=== PATIENT | male | born 1940 | race Caucasian/White ===

== ENCOUNTER 2021-03-18 14:43 | Emergency (ER) | payer MEDICARE ==
[2021-03-18] MEDS ORDERED: SODIUM CHLORIDE 0.9% 1,000 ML IV STA ×2 (15:25)
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
[2021-03-18 16:16] LABS: Basophils # (A) 0.1 k/uL (0-0.2); Basophils % (A) 1 %; Eosinophils # (A) 0.2 k/uL (0-0.7); Eosinophils % (A) 2 %; HCT 41.3 % (39.0-53.0); HGB 14.6 gm/dL (13.0-17.5); Lymphocytes # (A) 1.3 k/uL (1.0-4.8); Lymphocytes % (A) 18 %; MCH 33.1 pg (25.0-35.0); MCHC 35.3 g/dL (31.0-37.0); MCV 93.6 fL (80.0-100.0); Monocytes # (A) 0.4 k/uL (0-1.0); Monocytes % (A) 6 %; Neutrophils % (A) 71 %; Platelet Count 221 k/uL (150-450); RBC 4.41 m/uL (4.30-5.90); RDW 12.5 % (11.5-15.5)
[2021-03-18 16:20] LABS: Albumin 4.5 g/dL (3.5-5.0); Calcium 9.4 mg/dL (8.4-10.2); Potassium 4.5 mmol/L (3.5-5.1); Total Bilirubin 0.8 mg/dL (0.2-1.3); Total Protein 6.9 g/dL (6.3-8.2)
[2021-03-18 18:03] LABS: Appearance,Urine Clear (Clear); Bilirubin,Urine Negative (Negative); Blood,Urine Negative (Negative); Color,Urine Yellow; Glucose,Urine (UA) Negative (Negative); Ketones,Urine Negative (Negative); Leukocyte Esterase,Urine Negative (Negative); Nitrite,Urine Negative (Negative); PH, Urine 5.5 (5.0-8.0); Protein,Urine Negative (Negative); Specific Gravity,Urine 1.017 (1.001-1.035); Urobilinogen,Urine <2.0 mg/dL (<2.0)
--- NOTE | 2021-03-18 18:20 | XR ---
EXAMINATION TYPE: XR chest 2V DATE OF EXAM: 03/18/2021 COMPARISON: NONE HISTORY: Fever and weakness. TECHNIQUE: Frontal and lateral views of the chest are obtained. FINDINGS: There are mild to moderate bibasilar patchy opacities. No pleural effusion, or pneumothora x seen. The cardiac silhouette size is within normal limits. The osseous structures are intact. IMPRESSION: Bibasilar infiltrates in the appropriate clinical setting.
[2021-03-18 18:29] VITALS: TEMP 98.4
[2021-03-18 19:09] VITALS: BP 154/89; PULSE 71; RESP 18
== END 2021-03-18 19:10 | disposition home or self-care (01) ==
LOC: EC 14:43
DX: R53.1 Weakness (principal); I25.10 Atherosclerotic heart disease of native coronary artery without angina pectoris; I11.0 Hypertensive heart disease with heart failure; I50.9 Heart failure, unspecified; E11.9 Type 2 diabetes mellitus without complications
CPT/HCPCS: 36415; 71046; 80053; 81003; 83605; 84484; 85025; 85379; 87040; 87635; 93005; 99285

== ENCOUNTER 2022-10-01 04:50 | Emergency (ER) | payer MEDICARE ==
[2022-10-01 04:56] VITALS: TEMP 97.6
[2022-10-01 04:57] VITALS: BP 114/55; PULSE 77; RESP 16
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
[2022-10-01 05:24] LABS: Basophils % (A) 1 %; Eosinophils # (A) 0.2 k/uL (0-0.7); Eosinophils % (A) 2 %; HCT 35.1 % (39.0-53.0); HGB 13.1 gm/dL (13.0-17.5); Lymphocytes # (A) 1.4 k/uL (1.0-4.8); Lymphocytes % (A) 16 %; MCHC 37.2 g/dL (31.0-37.0); MCV 88.7 fL (80.0-100.0); Mean Platelet Volume 7.3; Monocytes # (A) 0.5 k/uL (0-1.0); Monocytes % (A) 5 %; Neutrophils # (A) 6.4 k/uL (1.3-7.7); Neutrophils % (A) 75 %; Platelet Count 225 k/uL (150-450); RBC 3.95 m/uL (4.30-5.90); RDW 13.1 % (11.5-15.5); WBC 8.6 k/uL (3.8-10.6)
[2022-10-01 05:37] LABS: Calcium 8.7 mg/dL (8.4-10.2); Potassium 4.3 mmol/L (3.5-5.1); Total Bilirubin 0.8 mg/dL (0.2-1.3); Total Protein 6.4 g/dL (6.3-8.2)
[2022-10-01 05:38] LABS: Partial Thromboplastin Time 24.3 sec (22.0-30.0); Prothrombin Time 10.3 sec (9.0-12.0)
--- NOTE | 2022-10-01 05:43 | XR ---
EXAMINATION TYPE: XR chest 2V DATE OF EXAM: 10/01/2022 COMPARISON: 03/18/2021 HISTORY: Weakness TECHNIQUE: 2 views FINDINGS: There is some linear density left lung base. Heart size is normal. There are no hilar ksenia s. Bony thorax is intact. There are chest leads. IMPRESSION: There is some mild atelectasis at the left lung base. No significant change compared to o ld exam. No heart failure.
== END 2022-10-01 06:25 | disposition home or self-care (01) ==
LOC: EC 04:50
DX: R07.89 Other chest pain (principal); I11.0 Hypertensive heart disease with heart failure; I50.9 Heart failure, unspecified; E11.9 Type 2 diabetes mellitus without complications; I25.10 Atherosclerotic heart disease of native coronary artery without angina pectoris; F41.9 Anxiety disorder, unspecified; Z79.4 Long term (current) use of insulin; Z79.899 Other long term (current) drug therapy
CPT/HCPCS: 36415; 71046; 80053; 83605; 83880; 84484; 85025; 85379; 85610; 85730; 93005; 99285

== ENCOUNTER 2022-11-22 07:31 | Emergency (ER) | payer MEDICARE ==
--- NOTE | 2022-11-22 08:23 | XR ---
EXAMINATION TYPE: XR chest 2V DATE OF EXAM: 11/22/2022 COMPARISON: 10/01/2022 INDICATION: Difficulty in breathing TECHNIQUE: Frontal and lateral views of the chest are obtained. FINDINGS: The heart size is mildly prominent. The pulmonary vasculature is normal. There is some linear opacity within left midlung may be some plate atelectasis.. IMPRESSION: 1. Suggestion of left basilar plate atelectasis versus scarring. 2. Mild cardiomegaly
[2022-11-22 08:34] LABS: Partial Thromboplastin Time 24.3 sec (22.0-30.0); Prothrombin Time 10.1 sec (9.0-12.0)
[2022-11-22 08:36] LABS: Albumin 4.1 g/dL (3.5-5.0); Calcium 8.6 mg/dL (8.4-10.2); Magnesium 1.9 mg/dL (1.6-2.3); Potassium 4.4 mmol/L (3.5-5.1); Total Bilirubin 0.6 mg/dL (0.2-1.3); Total Protein 6.5 g/dL (6.3-8.2)
[2022-11-22 08:41] LABS: Basophils % (A) 0 %; Eosinophils # (A) 0.1 k/uL (0-0.7); Eosinophils % (A) 1 %; HCT 37.4 % (39.0-53.0); HGB 13.1 gm/dL (13.0-17.5); Hyperchromasia Slight; Lymphocytes # (A) 0.8 k/uL (1.0-4.8); Lymphocytes % (A) 11 %; MCH 32.4 pg (25.0-35.0); MCHC 35.2 g/dL (31.0-37.0); MCV 92.2 fL (80.0-100.0); Mean Platelet Volume 6.9; Monocytes # (A) 0.4 k/uL (0-1.0); Monocytes % (A) 5 %; Neutrophils # (A) 5.8 k/uL (1.3-7.7); Neutrophils % (A) 81 %; Platelet Count 236 k/uL (150-450); RBC 4.05 m/uL (4.30-5.90); RDW 13.1 % (11.5-15.5); WBC 7.2 k/uL (3.8-10.6)
[2022-11-22 10:25] LABS: Appearance,Urine Cloudy (Clear); Bacteria,Urine Occasional /hpf; Bilirubin,Urine Negative (Negative); Blood,Urine Negative (Negative); Color,Urine Light Yellow; Glucose,Urine (UA) Negative (Negative); Ketones,Urine Negative (Negative); Leukocyte Esterase,Urine Large (Negative); Nitrite,Urine Positive (Negative); PH, Urine 6.5 (5.0-8.0); Protein,Urine Negative (Negative); RBC,Urine 2 /hpf (0-5); Specific Gravity,Urine 1.011 (1.001-1.035); Squamous Epithelial Cell,Urine <1 /hpf (0-4); Urobilinogen,Urine <2.0 mg/dL (<2.0); WBC,Urine 119 /hpf (0-5)
[2022-11-22] MEDS ORDERED: cefTRIAXone IN SWFI 1,000 MG/10 ML SYRINGE IVP STA (10:56)
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
[2022-11-22 11:25] VITALS: TEMP 97.7
[2022-11-22 12:13] VITALS: BP 128/76; PULSE 79; RESP 18
== END 2022-11-22 12:10 | disposition home or self-care (01) ==
LOC: EC 07:31
DX: N39.0 Urinary tract infection, site not specified (principal); I11.0 Hypertensive heart disease with heart failure; E11.9 Type 2 diabetes mellitus without complications; I25.10 Atherosclerotic heart disease of native coronary artery without angina pectoris; I50.9 Heart failure, unspecified; F41.9 Anxiety disorder, unspecified; Z79.4 Long term (current) use of insulin; Z79.899 Other long term (current) drug therapy; Z20.822 Contact with and (suspected) exposure to COVID-19
CPT/HCPCS: 36415; 93005; 83880; 80053; 83605; 83735; 84484; 85025; 85610; 85730; 81001; 87086; 87077; 87186; 87636; 71046; 99285; 96374; J0696

== ENCOUNTER 2023-02-04 21:39 | Observation (INO) | payer MEDICARE ==
[2023-02-04] MEDS ORDERED: SODIUM CHLORIDE 0.9% 500 ML 500 ML IV STA (22:00)
[2023-02-04 22:12] LABS: Basophils % (A) 1 %; Eosinophils # (A) 0.5 k/uL (0-0.7); Eosinophils % (A) 8 %; HCT 35.9 % (39.0-53.0); HGB 12.7 gm/dL (13.0-17.5); Hyperchromasia Slight; Lymphocytes # (A) 1.6 k/uL (1.0-4.8); Lymphocytes % (A) 24 %; MCH 31.7 pg (25.0-35.0); MCHC 35.4 g/dL (31.0-37.0); MCV 89.6 fL (80.0-100.0); Mean Platelet Volume 6.9; Monocytes # (A) 0.4 k/uL (0-1.0); Monocytes % (A) 5 %; Neutrophils % (A) 60 %; Platelet Count 213 k/uL (150-450); RBC 4.01 m/uL (4.30-5.90); RDW 12.8 % (11.5-15.5); WBC 6.7 k/uL (3.8-10.6)
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
[2023-02-04 22:32] LABS: Prothrombin Time 10.3 sec (9.0-12.0)
[2023-02-04 22:38] LABS: Albumin 3.8 g/dL (3.5-5.0); Calcium 8.8 mg/dL (8.4-10.2); Potassium 4.2 mmol/L (3.5-5.1); Total Bilirubin 0.8 mg/dL (0.2-1.3); Total Protein 6.3 g/dL (6.3-8.2)
--- NOTE | 2023-02-04 22:48 | XR ---
EXAMINATION TYPE: XR chest 2V DATE OF EXAM: 02/04/2023 10:35 PM COMPARISON: Chest radiographs from 11/22/2022. TECHNIQUE: XR chest 2V Frontal and lateral views of the chest. CLINICAL INDICATION:Male, 82 years old with history of syncope; FINDINGS: Lungs/Pleura: There is no evidence of pleural effusion, focal consolidation, or pneumothorax. Pulmonary vascularity: Unremarkable. Heart/mediastinum: Cardiomediastinal silhouette is enlarged and stable. Musculoskeletal: No acute osseous pathology. IMPRESSION: No acute cardiopulmonary disease/process. No significant change from prior.
[2023-02-04 23:15] LABS: Appearance,Urine Clear (Clear); Bilirubin,Urine Negative (Negative); Blood,Urine Negative (Negative); Color,Urine Yellow; Glucose,Urine (UA) Negative (Negative); Ketones,Urine Negative (Negative); Leukocyte Esterase,Urine Negative (Negative); Nitrite,Urine Negative (Negative); PH, Urine 5.5 (5.0-8.0); Protein,Urine Trace (Negative); Specific Gravity,Urine 1.016 (1.001-1.035); Urobilinogen,Urine <2.0 mg/dL (<2.0)
[2023-02-04] MEDS ORDERED: NALOXONE 0.4 MG/ML 1 ML VIAL IV PRN (23:33)
[2023-02-04] MEDS ORDERED: ACETAMINOPHEN TAB 325 MG TAB PO PRN (23:33)
[2023-02-04] MEDS ORDERED: diphenhydrAMINE 25 MG CAP PO STA (23:35)
[2023-02-04] MEDS: SODIUM CHLORIDE 0.9% 1,000 ML IV SCH (23:52)
[2023-02-05] MEDS ORDERED: DEXTROSE 50% SYRINGE 50 ML IVP PRN ×2 (07:55)
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
[2023-02-05 09:25] LABS: Glucose,Whole Blood 101 mg/dL (70-110)
[2023-02-05] MEDS: carvediloL 3.125 MG TAB PO SCH ×2 (09:29→21:15)
[2023-02-05] MEDS: hydrALAZINE HCL 25 MG TAB PO SCH ×2 (09:29→21:15)
[2023-02-05] MEDS: SPIRONOLACTONE 25 MG TAB PO SCH (09:29)
[2023-02-05] MEDS: INSULIN DETEMIR (LEVEMIR) 100 UNIT/ML SYR SQ SCH (09:32)
--- NOTE | 2023-02-05 11:13 | CA ---
Transthoracic Echo Report Name: Krishna Grant Age: 82 Gender: M : 1940 Exam Date: 02/05/2023 08:07 Exam Location: [facility] Ht (in): 71 Wt (lb): 220 Ordering Physician: Yanick Vela MD Attending/Referring Phys: [id number], [employer] Mukund Lira RDCS Procedure CPT: Indications: Syncope Cardiac Hx: Technical Quality: Fair Contrast 1: Total Dose (mL): Contrast 2: Total Dose (mL): MEASUREMENTS (Male / Female) Normal Values 2D ECHO LV Diastolic Diameter PLAX 3.3 cm 4.2 - 5.9 / 3.9 - 5.3 cm LV Systolic Diameter PLAX 2.4 cm LV Fractional Shortening PLAX 26.9 % IVS Diastolic Thickness 1.0 cm 0.6 - 1.0 / 0.6 - 0.9 cm IVS Systolic Thickness 1.6 cm LVPW Diastolic Thickness 1.4 cm 0.6 - 1.0 / 0.6 - 0.9 cm LVPW Systolic Thickness 1.6 cm LV Relative Wall Thickness 0.7 RV Internal Dim ED PLAX 3.2 cm LVOT Diameter 2.1 cm LA Systolic Diameter LX 3.9 cm 3.0 - 4.0 / 2.7 - 3.8 cm LV Diastolic Volume MOD BP 83.6 cm??? 67 - 155 / 56 - 104 cm??? LV Systolic Volume MOD BP 31.4 cm??? 22 - 58 / 19 - 49 cm??? LV Ejection Fraction MOD BP 62.4 % >= 55 % LV Stroke Volume MOD BP 52.2 cm??? LV Diastolic Volume MOD 4C 104.9 cm??? LV Systolic Volume MOD 4C 40.2 cm??? LV Ejection Fraction MOD 4C 61.7 % LV Stroke Volume MOD 4C 64.7 cm??? LV Diastolic Length 4C 8.4 cm LV Systolic Length 4C 5.9 cm LV Diastolic Volume MOD 2C 52.8 cm??? LV Systolic Volume MOD 2C 23.7 cm??? LV Ejection Fraction MOD 2C 55.1 % LV Stroke Volume MOD 2C 29.1 cm??? LV Diastolic Length 2C 6.6 cm LV Systolic Length 2C 5.7 cm Ascending Aorta Diameter 2.8 cm M-MODE Aortic Root Diameter MM 3.4 cm LA Systolic Diameter MM 4.7 cm LA Ao Ratio MM 1.4 MV E Point Septal Separation 0.9 cm AV Cusp Separation MM 2.2 cm DOPPLER AV Peak Velocity 118.0 cm/s AV Peak Gradient 5.6 mmHg MV Deceleration [place] 227.9 cm/s??? Mitral E Point Velocity 47.8 cm/s Mitral A Point Velocity 89.1 cm/s Mitral E to A Ratio 0.5 MV Deceleration Time 209.9 ms MV E' Velocity 4.0 cm/s Mitral E to MV E' Ratio 12.1 TR Peak Velocity 90.4 cm/s TR Peak Gradient 3.3 mmHg PV Peak Velocity 75.8 cm/s PV Peak Gradient 2.3 mmHg FINDINGS Left Ventricle Left ventricular ejection fraction is estimated at 55-60%. Grade 1 diastolic dysfunction. Right Ventricle Normal right ventricular size and function. Right Atrium Normal right atrial size. Left Atrium Mild left atrial dilatation. Mitral Valve Mitral valve thickened. Trace mitral regurgitation. Aortic Valve Trileaflet aortic valve. Diffuse thickening (sclerosis) of the aortic valve cusps without reduced excursion. Tricuspid Valve Trace to mild tricuspid regurgitation. Pulmonic Valve Trace to mild pulmonic regurgitation. Pericardium Normal pericardium. No pericardial effusion. Aorta Normal size aortic root and proximal ascending aorta. CONCLUSIONS Normal LV systolic function Normal RV size and systolic function Aortic sclerosis Previewed by: Dr. Bola Crawford MD (Electronically Signed) Final Date: 05 February 2023 11:13
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
[2023-02-05] MEDS: SODIUM CHLORIDE 0.9% 1,000 ML IV SCH (14:07)
--- NOTE | 2023-02-05 14:26 | CT ---
EXAMINATION TYPE: CT brain wo con CT DLP: 1100.4 mGycm, Automated exposure control for dose reduction was used. DATE OF EXAM: 02/05/2023 2:01 PM COMPARISON: None. CLINICAL INDICATION:Male, 82 years old with history of altered mental status, altered mental status TECHNIQUE: Brain: Axial CT images of the brain were obtained with coronal and sagittal reformats created and rev iewed. Contrast used: None. Oral contrast used: None. FINDINGS: Brain: Extra-axial spaces: No abnormal extra-axial fluid collections. Ventricular system: Dilatation in proportion to cerebral atrophy. Cerebral parenchyma: Cerebral atrophy. No acute intraparenchymal hemorrhage or mass effect. The keller -white junction is well differentiated. Scattered hypoattenuating areas are seen within the white mat ter. Cerebellum: Unremarkable. Mass effect: No evidence of midline shift. Intracranial vasculature: unremarkable Soft tissues: Normal. Calvarium/osseous structures: No depressed skull fracture. Paranasal sinuses and mastoid air cells: Mild scattered paranasal sinus disease. Visualized orbits: Orbital contents are intact. IMPRESSION: 1. No acute intracranial process. 2. Nonspecific white matter changes, likely secondary to chronic small vessel ischemic disease.
[2023-02-05 17:36] LABS: Glucose,Whole Blood 171 mg/dL (70-110)
[2023-02-05] MEDS ORDERED: lisinopriL 20 MG TAB PO SCH (20:00)
[2023-02-05] MEDS ORDERED: DONEPEZIL 5 MG TAB PO SCH (20:00)
[2023-02-05] MEDS ORDERED: CITALOPRAM HYDROBROMIDE 20 MG TAB PO SCH (20:00)
[2023-02-05] MEDS ORDERED: amLODIPine 10 MG TAB PO SCH (20:00)
[2023-02-05] MEDS ORDERED: ZOLPIDEM 5 MG TAB PO PRN (20:44)
--- NOTE | 2023-02-05 21:12 | EEG ---
ELECTROENCEPHALOGRAM REPORT CLINICAL HISTORY: This is an 82-year-old gentleman with reported syncopal episode at home. The video EEG is obtained to evaluate for seizure epileptiform activity. RELEVANT MEDICATION: The patient is not on any antiseizure medication. EEG TYPE: A routine 21-channel EEG is performed with video using the 10/20 electrode placement system. DESCRIPTION: Wakefulness is only obtained. During awake state, the posterior-dominant rhythm consists of sem-[id number]-[id number] voltage of 10 hertz activity. There was no physiological stage 2 sleep architecture. There is no focal slowing. There is nyof-pp-duwawlen diffuse myogenic artifact. Interictal and ictal is none. ACTIVATION PROCEDURE: Photic stimulation did not evoke a posterior driving response. There is no abnormality during the photic stimulation. Hyperventilation is not performed. CLINICAL INTERPRETATION: This is a normal routine EEG. There is no focal slowing, epileptiform discharge, or seizure on the EEG. A normal routine EEG does not rule out underlying epilepsy. Clinical correlation is recommended. MMRADHA / EVELYNN: [id number] /
[2023-02-05 21:15] LABS: Glucose,Whole Blood 128 mg/dL (70-110)
[2023-02-06] MEDS: SODIUM CHLORIDE 0.9% 1,000 ML IV SCH (02:07)
[2023-02-06 06:11] LABS: Glucose,Whole Blood 96 mg/dL (70-110)
[2023-02-06 06:46] VITALS: TEMP 97.6
[2023-02-06] MEDS: INSULIN DETEMIR (LEVEMIR) 100 UNIT/ML SYR SQ SCH (07:57)
[2023-02-06] MEDS: carvediloL 3.125 MG TAB PO SCH (07:58)
[2023-02-06] MEDS: SPIRONOLACTONE 25 MG TAB PO SCH (07:58)
[2023-02-06] MEDS: hydrALAZINE HCL 25 MG TAB PO SCH (07:58)
[2023-02-06 08:59] VITALS: BP 95/57; PULSE 78; RESP 20
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
[2023-02-06 12:16] LABS: Glucose,Whole Blood 123 mg/dL (70-110)
--- NOTE | 2023-02-06 13:02 | P.DS ---
Providers Date of admission: 02/04/23 23:34 Expected date of discharge: 02/06/23 Attending physician: Jarred Albrecht Consults: 02/05/23 10:31 Consult Physician Routine Consulting Provider: Rhys Cartwright Consult Reason/Comments: syncope Do you want consulting provider notified?: Yes Consult Physician Routine Consulting Provider: James Fontaine Consult Reason/Comments: syncope Do you want consulting provider notified?: Yes Primary care physician: Jarred Albrecht Hospital Course: Discharge diagnoses; Syncope, etiology unknown, possible vasovagal syncope, possible orthostatic hypotension History of hypertension History of dementia Coronary artery disease Hospital course; 82-year-old male with a past medical history significant for hypertension and dementia. Patient was apparently sitting at home yesterday eating dinner when he passed out. It was reported that he lost consciousness for 1 minute. Patient currently denies chest pain or pressure. He denies shortness of breath. Vital signs are stable. Per nursing, he had orthostatic blood pressures obtained in the ER which were positive. However this has not been documented. Patient was admitted to hospitalist service, cardiology and neurology were consulted. Cardiology recommended discharging patient with event monitor. Neurology evaluated the patient, CT of the brain was negative for stroke, EEG was also negative. Cardiology and neurology cleared the patient for discharge PHYSICAL EXAMINATION: GENERAL: The patient is alert self and place person, not in any acute distress. Well developed, well nourished. HEENT: Pupils are round and equally reacting to light. EOMI. No scleral icterus. No conjunctival pallor. Normocephalic, atraumatic. No pharyngeal erythema. No thyromegaly. CARDIOVASCULAR: S1 and S2 present. No murmurs, rubs, or gallops. PULMONARY: Chest is clear to auscultation, no wheezing or crackles. ABDOMEN: Soft, nontender, nondistended, normoactive bowel sounds. No palpable organomegaly. MUSCULOSKELETAL: No joint swelling or deformity. EXTREMITIES: No cyanosis, clubbing, or pedal edema. NEUROLOGICAL: Gross neurological examination did not reveal any focal deficits. SKIN: No rashes. Patient Condition at Discharge: Stable Plan - Discharge Summary Discharge Rx Participant: No New Discharge Prescriptions: Continue Donepezil HCl [Aricept] 5 mg PO HS@2000 Citalopram Hydrobromide [Citalopram HBr] 40 mg PO HS@2000 lisinopriL 40 mg PO HS@1999 Spironolactone [Aldactone] 25 mg PO DAILY@08 hydrALAZINE HCL [Apresoline] 25 mg PO BID@ amLODIPine [Norvasc] 10 mg PO HS@1999 carvediloL [Coreg] 3.125 mg PO BID@ Insulin Degludec [Tresiba Flextouch U-100 Pen] 20 units SQ DAILY Discharge Medication List Citalopram Hydrobromide [Citalopram HBr] 40 mg PO HS@199903/18/21 [History] Donepezil HCl [Aricept] 5 mg PO HS@199903/18/21 [History] Spironolactone [Aldactone] 25 mg PO DAILY@0803/18/21 [History] amLODIPine [Norvasc] 10 mg PO HS@199903/18/21 [History] carvediloL [Coreg] 3.125 mg PO BID@799,199903/18/21 [History] hydrALAZINE HCL [Apresoline] 25 mg PO BID@799,199903/18/21 [History] lisinopriL 40 mg PO HS@199903/18/21 [History] Insulin Degludec [Tresiba Flextouch U-100 Pen] 20 units SQ DAILY 02/05/23 [History] Follow up Appointment(s)/Referral(s): Bola Crawford MD [STAFF PHYSICIAN] - 1 Week Jarred Albrecht MD [Primary Care Provider] - 1-2 days Discharge Disposition: HOME SELF-CARE
--- NOTE | 2023-02-06 13:19 | P.PN ---
Subjective Progress Note Date: 02/06/23 The patient is seen at bedside and no further syncopal episodes. Objective - Vital Signs Vital signs: Vital Signs Temp 97.6 F 02/06/23 06:43 Pulse 78 02/06/23 08:51 Resp 20 02/06/23 08:51 BP 95/57 02/06/23 08:51 Pulse Ox 95 02/06/23 08:51 FiO2 Intake & Output 02/05/23 02/06/23 02/06/23 18:59 06:59 18:59 Weight 99.79 kg Other: # Voids 1 1 - Exam GENERAL: The patient is lying in bed and is not in acute distress. NEUROLOGICAL: Higher mental function: The patient is awake, alert, oriented to self, place and time. Patient is following commands. No aphasia and no neglect. Cranial nerves: The pupils are round, equal and reactive to light and accommodation. Visual randall are full to confrontation throughout. Extraocular movement is intact no nystagmus is noted. Facial sensation is normal to touch throughout. The facial strength is normal throughout. Hearing is moderately decreased bilaterally to hand rub. Tongue is midline and moved [id number] without any difficulty. No dysarthria is noted. Shoulder shrug is normal bilaterally. Motor: The strength is 5 over 5 throughout. Normal tone and bulk. Cerebellum: Normal finger to nose bilaterally. Sensation: Sensation is normal to touch throughout. Reflexes (right/left): 1+ throughout. Plantars are downgoing bilaterally. Some other workup during his hospital visit consisted of: Initial log glucose is 103, calcium is 8.8, magnesium 2.0. Sodium is 130. 2-D echo was reported as normal left ventricle systolic function. Normal right ventricular size and systolic function. Left atrium is mildly dilated. Ejection fraction 55-60%. Routine EEG: Is normal. CT Head is reported as no acute intracranial process. - Labs CBC & Chem 7: 02/04/23 21:48 02/04/23 21:48 Labs: Abnormal Lab Results - Last 24 Hours (Table) 02/05/23 02/05/23 02/05/23 Range/Units 17:35 21:14 21:48 POC Glucose (mg/dL) 171 H 128 H (70-110) mg/dL Hemoglobin A1c 7.7 H (0.0-6.0) % 04/13/23 Range/Units 12:15 POC Glucose (mg/dL) 123 H (70-110) mg/dL Hemoglobin A1c (0.0-6.0) % Assessment and Plan Assessment: This is an 82-year-old gentleman who presented emergency department because of syncopal episode he lost consciousness for 1 minute. Syncopal episode Seems due to positive orthostatic. No seizure on EEG. Orthostatic hypotension History of coronary artery disease Heart failure Diabetes mellitus Hypertension Plan: Regarding the orthostatic hypertension we'll defer the management to primary team. Consider compression stocking and if that's the does not help consider salt tablets and then midodrine if needed Cardiology is consulted We'll defer the rest of the medical management to primary team There is no further neurological workup. Plan discussed with the patient's nurse. Time with Patient: Less than 30
== END 2023-02-06 16:15 | disposition home or self-care (01) ==
LOC: EC 21:39 → 6NMEDSUR 23:34
PROVIDERS: ADMIT Family Medicine; ATTEND Family Medicine
DX: R55 Syncope and collapse (principal); F03.90 Unspecified dementia, unspecified severity, without behavioral disturbance, psychotic disturbance, mood disturbance, and anxiety; I25.10 Atherosclerotic heart disease of native coronary artery without angina pectoris; I11.0 Hypertensive heart disease with heart failure; I50.9 Heart failure, unspecified; E11.9 Type 2 diabetes mellitus without complications; F41.9 Anxiety disorder, unspecified; Z79.899 Other long term (current) drug therapy; Z79.4 Long term (current) use of insulin
CPT/HCPCS: 96361 ×3; 96372 ×2; 96360; 99285; 36415; 94760; 95816; 93005; 93306; 93270; 80053; 83735; 84484; 85025; 85610; 85730; 81003; 83036; 71046; 70450; G0378 ×3

== ENCOUNTER 2023-02-25 07:37 | Emergency (ER) | payer MEDICARE ==
[2023-02-25] MEDS ORDERED: SODIUM CHLORIDE 0.9% 500 ML 500 ML IV ONE (07:44)
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
[2023-02-25 07:51] VITALS: PULSE 69; RESP 20
[2023-02-25 08:11] LABS: Basophils % (A) 1 %; Eosinophils # (A) 0.4 k/uL (0-0.7); Eosinophils % (A) 7 %; HGB 12.9 gm/dL (13.0-17.5); Hyperchromasia Slight; Lymphocytes % (A) 17 %; MCH 31.4 pg (25.0-35.0); MCHC 35.9 g/dL (31.0-37.0); MCV 87.5 fL (80.0-100.0); Mean Platelet Volume 7.2; Monocytes # (A) 0.4 k/uL (0-1.0); Monocytes % (A) 6 %; Neutrophils # (A) 3.9 k/uL (1.3-7.7); Neutrophils % (A) 68 %; Partial Thromboplastin Time 23.6 sec (22.0-30.0); Platelet Count 219 k/uL (150-450); Prothrombin Time 10.3 sec (9.0-12.0); RBC 4.12 m/uL (4.30-5.90); RDW 13.4 % (11.5-15.5); WBC 5.8 k/uL (3.8-10.6)
--- NOTE | 2023-02-25 08:34 | XR ---
EXAMINATION TYPE: XR chest 2V DATE OF EXAM: 02/25/2023 COMPARISON: 02/04/2023 TECHNIQUE: PA and lateral views submitted. HISTORY: Shortness of breath FINDINGS: The lungs are clear and there is no pneumothorax, pleural effusion, or focal pneumonia. Heart size normal and no overt failure. Osseous structures demonstrate hypertrophic and degenerative changes of the spine. Arthropathy of the shoulders and postsurgical change overlying cervical spine. Suspect und erlying COPD. Limited inspiration with elevated hemidiaphragms. IMPRESSION: 1. No acute process.
--- NOTE | 2023-02-25 08:36 | CT ---
EXAMINATION TYPE: CT brain wo con DATE OF EXAM: 02/25/2023 COMPARISON: 02/05/2023 HISTORY: 82-year-old male with confusion, AMS TECHNIQUE: Examination was done in axial plane without intravenous contrast. Coronal and sagittal r econstructions performed. CT DLP: 1188.4 mGycm Automated exposure control for dose reduction was used. FINDINGS: There is no evidence of acute intracranial hemorrhage, acute ischemic changes, mass, mass-effect, or extra-axial fluid collection. There is no effacement of cerebral sulci or basal subarachnoid cister ns. There is mild ventriculomegaly, Hayden's ratio calculated at 0.38. There is no midline shift. Mcallister-white matter distinction is preserved. Mild patchy white matter hypo densities in both cerebral hemispheres. Mastoid air cells are pneumatized. Mild mucosal thickening right maxillary sinus and trace within the ethmoid air cells. Rightward nasal septal deviation. Orbits and globes are intact. Focal fat density lesion intraductal in space and inner table of the left parietal convexity, probabl y a calvarial hemangioma questionable clinical significance. IMPRESSION: 1. No acute intracranial abnormality seen. Similar mild patchy burden of chronic small vessel ischemi c disease. 2. Similar ventriculomegaly, Hayden's ratio calculated at 0.38. Correlate to exclude a component of NPH .
[2023-02-25 08:39] LABS: Calcium 8.8 mg/dL (8.4-10.2); Potassium 4.6 mmol/L (3.5-5.1); Total Bilirubin 1.1 mg/dL (0.2-1.3); Total Protein 6.5 g/dL (6.3-8.2)
[2023-02-25 08:49] LABS: Appearance,Urine Clear (Clear); Bilirubin,Urine Negative (Negative); Blood,Urine Negative (Negative); Color,Urine Light Yellow; Glucose,Urine (UA) Negative (Negative); Ketones,Urine Negative (Negative); Leukocyte Esterase,Urine Negative (Negative); Nitrite,Urine Negative (Negative); Protein,Urine Negative (Negative); Specific Gravity,Urine 1.007 (1.001-1.035); Urobilinogen,Urine <2.0 mg/dL (<2.0)
[2023-02-25 09:02] LABS: Amphetamine Screen,Urine Not Detected (NotDetected); Barbiturate Screen,Urine Not Detected (NotDetected); Benzodiazepines Screen,Urine Not Detected (NotDetected); Cocaine Screen,Urine Not Detected (NotDetected); Methadone Screen, Urine Not Detected (NotDetected); Opiate Screen,Urine Not Detected (NotDetected); Oxycodone Screen, Urine Not Detected (NotDetected); Phencyclidine Screen,Urine Not Detected (NotDetected); Tricyclic Antidepressant,Urine Not Detected (NotDetected); Urn Cannabinoid Scrn Not Detected (NotDetected)
[2023-02-25 12:11] VITALS: BP 142/80; TEMP 97.8
== END 2023-02-25 09:43 | disposition home or self-care (01) ==
LOC: EC 07:37
DX: R53.1 Weakness (principal); R06.00 Dyspnea, unspecified; I25.10 Atherosclerotic heart disease of native coronary artery without angina pectoris; I11.0 Hypertensive heart disease with heart failure; I50.9 Heart failure, unspecified; E11.9 Type 2 diabetes mellitus without complications; F41.9 Anxiety disorder, unspecified; Z79.4 Long term (current) use of insulin; Z79.899 Other long term (current) drug therapy; Z20.822 Contact with and (suspected) exposure to COVID-19
CPT/HCPCS: 36415; 70450; 71046; 80053; 80306; 81003; 82140; 83880; 84484; 85025; 85610; 85730; 87636; 93005; 96360; 99285

== ENCOUNTER 2023-03-12 19:53 | Emergency (ER) | payer MEDICARE ==
[2023-03-12 20:04] VITALS: TEMP 97
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
[2023-03-12 22:44] VITALS: BP 114/71; PULSE 71; RESP 20
== END 2023-03-13 00:48 | disposition home or self-care (01) ==
LOC: EC 19:53
DX: S61.411A Laceration without foreign body of right hand, initial encounter (principal); I25.10 Atherosclerotic heart disease of native coronary artery without angina pectoris; I11.0 Hypertensive heart disease with heart failure; I50.9 Heart failure, unspecified; E11.9 Type 2 diabetes mellitus without complications; F41.9 Anxiety disorder, unspecified; Z79.4 Long term (current) use of insulin; Z79.899 Other long term (current) drug therapy
CPT/HCPCS: 70450; 72125; 99284